=== PATIENT | female | born 1995 | race Caucasian/White ===

== ENCOUNTER 2023-01-04 22:39 | Emergency (ER) | payer MEDICAID, SELFPAY ==
[2023-01-04 23:01] VITALS: BP 119/89; PULSE 110; RESP 18; TEMP 37.7; O2SAT 96
--- NOTE | 2023-01-04 23:32 | ED.GENADUL_ITS ---
Discharge Plan Disposition Patient Disposition: Home Condition: Stable Discharge Details Clinical Impression: Abscess, dental Primary Care Provider: None,None ED Provider: Sushil Lake Home Meds and New Rx's Prescriptions: New fluconazole 150 mg tablet 150 mg PO DAILY Qty: 2 0RF Rx Instructions: take 1 tablet on day 1 and if still symptomatic in 3 days take another 1 tablet clindamycin HCl 150 mg capsule 450 mg PO TID 7 Days Qty: 63 0RF Discharge Instructions Instructions: Dental Abscess (ED) Additional Instructions: follow up with your dentist as soon as possible if you feel more ill, have difficulty breathing or difficulty swallowing liquids return to the emergency department Medical Decision Making 27 yo female who denies chronic medical problems comes in with cc of left lower jaw pain and swelling worsening since Friday. She denies any severe pain, difficulty breathing or swallowing. She arrives hemodynamically stable, does have a low grade fever. She is in no distress speaking in full sentences swallowing normally. She has mild swelling of the left lower jaw line, no submandibular swelling, no restricted neck movements or pain over the hyoid. All the molars on her left lower jaw are severely eroded, she states she is supposed to have them pulled but hasn't had it done. She has normal posterior pharynx, midline uvula. She has no drainable abscess at the bedside. Suspect dental abscess. I offered to do screening labs given her low grade fever but she declined as she has had this before and responds to antibiotics and has decision making capacity. She has no findings to suggest ludwigs on exam. She was instructed to f/u with her dentist, will place on clindamycin as she states she has a pcn allergy. She also requests fluconazole as she states she will most likely have a yeast infection and was instructed only to take it if symptoms develop. Return precautions given Differential Diagnosis Differential Diagnosis: dental abscess, pulpitis HPI General Mode of arrival: ambulatory . Date/Time Provider Initiated Documentation: 01/04/23 22:56 . Limitations to Documentation: no limitations . Information obtained by: patient . History of Present Illness 27 year old F presents to the emergency department with the chief complaint of dental pain, described as moderate, Quality is described as aching, and is localized to the mouth. Patient started experiencing this day(s) (4) and it has been constant. No relieving factors improve symptom(s), No exacerbating factors reported . Patient did receive the following treatments prior to arrival, none Related Data Home Medications Medication Instructions Recorded Confirmed clindamycin HCl 150 mg capsule 450 mg PO TID 7 days #63 caps 01/04/23 fluconazole 150 mg tablet 150 mg PO DAILY #2 tabs 01/04/23 Previous Rx's Medication Instructions Recorded clindamycin HCl 150 mg capsule 450 mg PO TID 7 days #63 caps 01/04/23 fluconazole 150 mg tablet 150 mg PO DAILY #2 tabs 01/04/23 General Stated Complaint: DentalOral LOVE: 3 Review of Systems All systems reviewed & are unremarkable except as noted in HPI and below Constitutional Constitutional: Denies chills ENT Ears, Nose, Mouth, and Throat: Denies change in voice Cardiovascular Cardiovascular: Denies chest pain and Denies dyspnea Respiratory Respiratory: Denies cough and Denies dyspnea Gastrointestinal Gastrointestinal: Denies abdominal pain, Denies nausea and Denies vomiting Musculoskeletal Musculoskeletal: Denies joint swelling Psychiatric Psychiatric: Denies depression PFSH All Active Problems (Updated 01/04/23 @ 23:33 by Sushil Lake MD) Abscess, dental (Acute) Social History Smoking risk assessment performed?: No Course Vital Signs Vital signs: Vital Signs Temperature 37.7 C H 01/04/23 23:01 Pulse 110 H 01/04/23 23:01 Respiratory Rate 18 01/04/23 23:01 Blood Pressure 119/89 01/04/23 23:01 Pulse Oximetry 96 01/04/23 23:01 Temperature 37.7 C H 01/04/23 23:01 Temperature Source Oral 01/04/23 23:01 Pulse 110 H 01/04/23 23:01 Respiratory Rate 18 01/04/23 23:01 Blood Pressure 119/89 01/04/23 23:01 Blood Pressure Position Sitting 01/04/23 23:01 Pulse Oximetry 96 01/04/23 23:01 Oxygen Delivery Method Room Air 01/04/23 23:01 Oxygen Flow Rate 0 01/04/23 23:01 Pain Level 7 01/04/23 23:01
[2023-01-04 23:43] VITALS: BP 117/80; PULSE 101; RESP 16; O2SAT 95
[2023-01-04] MEDS: Clindamycin 150 MG CAP 450 MG PO (23:43)
[2023-01-04 23:49] VITALS: PULSE 101
[2023-01-04] MEDS: Ibuprofen 600 MG TAB PO (23:49)
== END 2023-01-04 23:51 | disposition home or self-care (01) ==
PROVIDERS: Emergency Provider Emergency Medicine
DX: K04.7 Periapical abscess without sinus (principal)
CPT/HCPCS: 99283; 99284